=== PATIENT | female | born 1950 | race Caucasian/White ===

== ENCOUNTER 2018-12-14 17:08 | Emergency (ER) | payer MEDICARE, OTHER ==
[~2018-12-14] VITALS: Ht 170.2 cm; Wt 100.2 kg
--- OUTSIDE RECORDS SUMMARY | ~2018-12-14 | XMS | Clinical Summary ---
Demographics + + + | Address | [address] [place] [address] | | | [place] [address] | + + + | Home Phone | | + + + | Preferred Language | Unknown | + + + | Marital Status | Unknown | + + + | Alevism Affiliation | Unknown | + + + | Race | Unknown | + + + | Ethnic Group | Unknown | + + + Author + + + | Author | [facility] | | | and [place] | + + + | Organization | [facility] | | | and [place] | + + + | Address | Unknown | + + + | Phone | Unavailable | + + + Care Team Providers + +------+ + | Care Food Assembler Name | Role | Phone | + +------+ + PCP | Unavailable | + +------+ + Allergies Not on File Medications + + + +---------+------+------+-------+ | Medication | Sig | Dispensed | Refills | Star | End | Statu | | | | | | t | Date | s | | | | | | Date | | | + + + +---------+------+------+-------+ | lovastatin | Take 1 tablet by | 90 | 1 | 09/29 | | Activ | | (MEVACOR) 20 mg | mouth nightly. | tablet | | 10/17 | | e | | tablet | | | | 18 | | | + + + +---------+------+------+-------+ Active Problems Not on file Immunizations + + + + | Name | Dates Previously Given | Next Due | + + + + | INFLUENZA 65 Y OR >, | 02/09/2018 | | | TRIVALENT HIGH-DOSE | | | + + + + Social History + +-------+ +--------+------+ | Tobacco Use | Types | Packs/Day | Years | Date | | | | | Used | | + +-------+ +--------+------+ | Never Assessed | | | | | + +-------+ +--------+------+ + + + | Sex Assigned at | Date Recorded | | | | + + + | Not on file | | + + + + + + + | Job Start Date | Occupation | Industry | + + + + | Not on file | Not on file | Not on file | + + + + + + + + | Travel History | Travel Start | Travel End | + + + + + + | No recent travel history available. | + + Last Filed Vital Signs Not on file Plan of Treatment + + + + + | Health Maintenance | Due Date | Last Done | Comments | + + + + + | Hepatitis C | | | | | Screening | 1 | | | + + + + + | Vaccine: | | | | | Dtap/Tdap/Td (1 - | 0 | | | | Tdap) | | | | + + + + + | Colorectal Cancer | | | | | Screening | 1 | | | | (Colonoscopy) | | | | + + + + + | Vaccine: Zoster (1 | | | | | of 2) | 1 | | | + + + + + | Breast Cancer | | | | | Screening | 6 | | | + + + + + | Vaccine: | | | | | Pneumococcal 65+ | 6 | | | | Low/Medium Risk (1 | | | | | of 2 - PCV13) | | | | + + + + + | Adult Annual | | | | | Wellness Visit | 8 | | | + + + + + | Vaccine: Influenza | | 02/09/2018 | | | (#1) | 9 | | | + + + + + Results Not on filefrom Last 3 Months"
--- OUTSIDE RECORDS SUMMARY | ~2018-12-14 | XMS | Clinical Summary ---
Demographics + + + | Address | [address] [place] [address] | | | [place] [address] | + + + | Home Phone | | + + + | Preferred Language | Unknown | + + + | Marital Status | Unknown | + + + | Bahai Affiliation | Unknown | + + + | Race | Unknown | + + + | Ethnic Group | Unknown | + + + Author + + + | Author | [facility] | | | and [place] | + + + | Organization | [facility] | | | and [place] | + + + | Address | Unknown | + + + | Phone | Unavailable | + + + Care Team Providers + +------+ + | Care Spool Sorter Name | Role | Phone | + [...]
[2018-12-14] MEDS ORDERED: LOSARTAN POTASS50 MG PO (17:44)
[2018-12-14] MEDS ORDERED: ROPINIROLE HCL1 MG PO (17:45)
[2018-12-14] MEDS ORDERED: MELOXICAM15 MG PO (17:45)
[2018-12-14] MEDS ORDERED: CITALOPRAM HBR10 MG PO (17:45)
[2018-12-14] MEDS ORDERED: LOVASTATIN20 MG PO (17:45)
[2018-12-14] MEDS ORDERED: BUPROPION HCL150 M2 PO (17:45)
[2018-12-14] MEDS ORDERED: GLUCOSAMINE CH1 EAC5 PO (17:46)
[2018-12-14] MEDS ORDERED: DICYCLOMINE HCL20 MG PO (20:24)
== END 2018-12-14 20:38 | disposition home or self-care (01) ==
LOC: ED 17:08
DX: R10.11 Right upper quadrant pain (principal); I10 Essential (primary) hypertension; Z88.1 Allergy status to other antibiotic agents; Z88.2 Allergy status to sulfonamides
CPT/HCPCS: 74177; 80053; 81001; 83690; 83735; 85025; 96361; 96374; 96375; 99284-25; J1170; J1885; J2405; J7030

== ENCOUNTER 2021-10-24 18:45 | Emergency (ER) | payer MEDICARE, OTHER ==
[~2021-10-24] VITALS: Ht 170.2 cm; Wt 94.8 kg
[~2021-10-24 18:45] MED LIST: BUPROPION HCL150 M2 PO; CITALOPRAM HBR10 MG PO; DICYCLOMINE HCL20 MG PO; GLUCOSAMINE CH1 EAC5 PO; LOSARTAN POTASS50 MG PO; LOVASTATIN20 MG PO; MELOXICAM15 MG PO; ROPINIROLE HCL1 MG PO
--- OUTSIDE RECORDS SUMMARY | 2021-10-24 18:48 | XMS ---
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 EPrashanth VISIT COUNT (12 MO.) 1 [facility] TOTAL 1 NOTE: Visits indicate total known visits. ED/UCC VISIT TRACKING (12 MO.) 10/24/2021 18:46 [facility] [place] TYPE: Emergency COMPLAINT: - HIP PAIN INPATIENT VISIT TRACKING (12 MO.) No inpatient visits to display in this time frame [email or web address]
[2021-10-24] MEDS ORDERED: ULTRAM50 MG PO (20:42)
[2021-10-24] MEDS ORDERED: NEURONTIN100 MG PO (20:42)
== END 2021-10-24 21:50 | disposition home or self-care (01) ==
LOC: ED 18:45
DX: M54.41 Lumbago with sciatica, right side (principal)
CPT/HCPCS: 36415; 72100; 73502; 80053; 85025; 85610; 96374; 96376; 99283-25; A9270; J2270

== ENCOUNTER 2022-12-26 11:39 | Emergency (ER) | payer MEDICARE, OTHER ==
[~2022-12-26] VITALS: Ht 170.2 cm; Wt 94.8 kg
[~2022-12-26 11:39] MED LIST changes: +NEURONTIN100 MG PO; +ULTRAM50 MG PO
--- OUTSIDE RECORDS SUMMARY | 2022-12-26 11:42 | XMS ---
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 E.Alexander VISIT COUNT (12 MO.) 1 [facility] TOTAL 2 NOTE: Visits indicate total known visits. ED/UCC VISIT TRACKING (12 MO.) 12/26/2022 11:[address] [facility] [place] TYPE: Emergency COMPLAINT: - R ANKLE SWOLLEN [facility] Emergency DIAGNOSES: - Sciatica, left side - all over pain after injection - Leg Pain INPATIENT VISIT TRACKING (12 MO.) No inpatient visits to display in this time frame [email or web address]
[2022-12-26] MEDS ORDERED: K-TAB ER20 MEQ PO (12:01)
[2022-12-26] MEDS ORDERED: HYDROCODON-ACE1 EA10 PO (12:02)
[2022-12-26 12:31] LABS: BASOPHILS 1.1 % (0-2); EOSINOPHILS 0.9 % (0-6); HEMATOCRIT 38.9 % (35.0-50.0); LYMPHOCYTES 21.8 % (24-44); MCH 31.4 (27-36); MCHC 33.5 g/dl (30-36); MCV 93.7 fl (81-99); MONOCYTES 12.1 % (0-12); NEUTROPHILS 64.1 % (39-80); PLATELET COUNT 228 K/uL (140-440); RBC 4.16 M/ul (4.3-5.7); RDW 13.1 (10.5-15.0)
[2022-12-26 12:45] LABS: ALBUMIN 3.9 g/dL (3.4-5.0); ALBUMIN/GLOBULIN RATIO 1.22 (1.1-2.4); ANION GAP 8.4 (7-21); BILIRUBIN, TOTAL 0.6 ng/dL (0.2-1.0); BUN/CREATININE RATIO 18.09 (6.0-28.6); CALCIUM 9.3 mg/dL (8.5-10.1); CREATININE, SERUM 1.05 mg/dL (0.55-1.02); POTASSIUM 4.4 mmol/L (3.5-5.1); PROTEIN, TOTAL 7.1 g/dL (6.4-8.2)
[2022-12-26] MEDS ORDERED: CLEOCIN HCL300 MG PO (13:36)
[2022-12-26 13:43] VITALS: BP 138/84
== END 2022-12-26 13:43 | disposition home or self-care (01) ==
LOC: ED 11:39
PROVIDERS: Internal Medicine
DX: L03.115 Cellulitis of right lower limb (principal); I10 Essential (primary) hypertension; Z98.1 Arthrodesis status; Z88.1 Allergy status to other antibiotic agents; Z88.2 Allergy status to sulfonamides; Z79.899 Other long term (current) drug therapy
CPT/HCPCS: 36415; 73610; 80053; 83605; 85025

== ENCOUNTER 2024-04-03 17:29 | Emergency (ER) | payer MEDICARE, OTHER ==
[~2024-04-03] VITALS: Ht 170.2 cm; Wt 100.2 kg
[~2024-04-03 17:29] MED LIST changes: +CLEOCIN HCL300 MG PO; +GABAPENTIN100 MG PO; +HYDROCODON-ACE1 EA10 PO; +K-TAB ER20 MEQ PO
[2024-04-03 18:45] LABS: HEMOGLOBIN 13.7 g/dL (12.0-18.0)
[2024-04-03] MEDS ORDERED: MECLIZINE HCL 25 MG TAB PO ONE (18:45)
[2024-04-03 18:47] LABS: BASOPHILS 1.2 % (0-2); EOSINOPHILS 0.9 % (0-6); HEMATOCRIT 40.4 % (35.0-50.0); LYMPHOCYTES 31.3 % (24-44); MCV 94.2 fl (81-99); MONOCYTES 12.1 % (0-12); NEUTROPHILS 54.5 % (39-80); PLATELET COUNT 242 K/uL (140-440); RBC 4.29 M/ul (4.3-5.7); RDW 13.7 (10.5-15.0)
[2024-04-03 18:55] LABS: ALBUMIN 3.6 g/dL (3.4-5.0); ALBUMIN/GLOBULIN RATIO 1.09 (1.1-2.4); BILIRUBIN, TOTAL 0.5 ng/dL (0.2-1.0); BUN/CREATININE RATIO 19.04 (6.0-28.6); CALCIUM 9.9 mg/dL (8.5-10.1); CREATININE, SERUM 1.05 mg/dL (0.55-1.02); PROTEIN, TOTAL 6.9 g/dL (6.4-8.2)
[2024-04-03] MEDS ORDERED: ANTIVERT25 M1 PO (19:49)
[2024-04-03 20:15] VITALS: BP 142/99
--- NOTE | 2024-04-04 15:38 | EKG ---
[facility] [address] [facility] [place] [address] Signed Normal sinus rhythm Left anterior fascicular block Minimal voltage criteria for LVH, may be normal variant ( [place] product ) Abnormal ECG When compared with ECG of 15-AUG-2023 02:01, No significant change was found Confirmed by Familia Elena MD ([id number]) on 04/04/2024 1:20:33 PM Electronically Signed By: FAMILIA ELENA MD 04/04/24 1538 PATIENT NAME: NARAYAN HARDING Electrocardiogram DATE OF : 50 PHYSICIAN: FAMILIA ELENA MD REPORT #: [id number] REPORT IS CONFIDENTIAL AND NOT TO BE RELEASED WITHOUT AUTHORIZATION
== END 2024-04-03 20:15 | disposition home or self-care (01) ==
LOC: ED 17:29
PROVIDERS: Emergency Medicine
DX: R42 Dizziness and giddiness (principal); I10 Essential (primary) hypertension; Z88.2 Allergy status to sulfonamides; Z88.1 Allergy status to other antibiotic agents; Z79.899 Other long term (current) drug therapy
CPT/HCPCS: 36415; 70450; 80053; 83735; 84484; 85025; 93005; 93010; 99284-25; A9270

== ENCOUNTER 2025-01-07 11:44 | Emergency (ER) | payer MEDICARE, OTHER ==
[~2025-01-07] VITALS: Ht 170.2 cm; Wt 97.7 kg
[~2025-01-07 11:44] MED LIST changes: +ANTIVERT25 M1 PO
[2025-01-07 13:00] LABS: BASOPHILS 1.3 % (0.1-1.2); EOSINOPHILS 3.6 % (0.7-5.8); LYMPHOCYTES 25.8 % (19.3-51.7); MCH 29.6 PG (25.6-32.2); MCHC 31.9 g/dL (32.2-35.5); MCV 92.5 fL (79.4-94.8); MONOCYTES 11.6 % (4.7-12.5); NEUTROPHILS 57.6 % (34.0-71.1); RBC 4.16 M/uL (3.93-5.22)
[2025-01-07 13:16] LABS: ALT (SGPT) 21.0 U/L (14-59); AST (SGOT) 11.0 U/L (15-37); GLOMERULAR FILTRATION RATE,EST 56.0 mL/min (>60); PROTEIN, TOTAL 7.0 g/dL (6.4-8.2); UREA NITROGEN 23.0 mg/dL (7-18)
[2025-01-07] MEDS ORDERED: MORPHINE SULFATE 4 MG/ML VIAL IV ONE ×2 (14:00→14:45)
--- NOTE | 2025-01-07 16:24 | NUR ---
ARLETTE 1539: THIS RN IS CONSULTING ON THE LEFT LOWER EXTREMITY WITH LATERAL ANKLE. THE PT HAS HAD CHRONIC WOUNDS ON BLE, THE RIGHT LOWER EXTREMITY HAS HEALED. SHE STATES THAT HER DOG SCRATCHED THE AREA, SINCE THAT TIME IT HAS BECOME INFECTED. THE PT HAD A TELFA PAD AND GAUZE WRAPPED ONLY AROUND AREA, THERE IS SWELLING ABOVE AND BELOW THE WOUND AREA. THE PERIWOUND SKIN IS BRIGHT RED, NOT NECESSARILY WARM TO THE TOUCH. THE AREA IS EXTREMELY PAINFUL, SHE DOESN'T TOLERATE MUCH PRESSURE TO THE WOUND WHILE CLEANING. THE WUOND IS CHARACTERISTIC TO A MIXED VENOUX/ARTERIAL VASCULAR WOUND. SHE STATES THAT JATINDER PEÑA HELPED HER ORDER COMPRESSION SOCKS FROM [facility] THAT SHOULD BE HERE TUESDAY - "THE VELCRO KIND" TO MAKE IT EASIER FOR HER TO PUT ON. THE WOUND HAS DRY YELLOW EXUDATE ON THE WOUND BED, THE PT DOES NOT TOLERATE THIS RN ATTEMPTING TO CLEAN SOME OF IT OFF. THE WOUND MEASURED 5.5CM X 4CM X 0.4CM. MEDIHONEY SHEET IS APPLIED TO THE WOUND BED, COVERED WITH A 4X4 QWIK FIBER, SECURED IN PLACE WITH ROLL GAUZE AND COBAN - STARTING AT THE BASE OF THE PINKY TOE, WRAPPING UP TO 2 FINGER WIDTHS BELOW THE KNEE BEND. DUE TO HH NOT BEING SET UP FOR HER YET THROUGH HER PCP. SHE WILL BE SET UP TO COME IN ON AN OUTPATIENT BASIS FOR HELP WITH DRESSING CHANGES THIS IS A HARDSHIP FOR HER. SHE IS EDUCATED ON THE IMPORTANCE OF ELEVATING HER LEGS. SHE IS EDUCATED THAT SHE CAN APPLY ICE PACKS TO THE AREA TO HELP WITH PAIN. SHE IS ALSO EDUCATED THAT ONCE SHE GETS HER COMPRESSION SOCKS SHE WILL WANT TO PUT THEM ON FIRST THING IN THE MORNING AND TAKE THEM OFF BEFORE BED. SHE VERBALIZES UNDERSTANDING. ARLETTE 1619: CONSULT IS COMPLETE. PT IS SETUP TO COME INTO DAY SURGERY FOR WOUND CARE ON 01/09/25 @ 1000.
[2025-01-07] MEDS ORDERED: CLEOCIN HCL150 MG PO (16:58)
[2025-01-07 17:15] VITALS: BP 115/58
== END 2025-01-07 17:15 | disposition home or self-care (01) ==
LOC: ED 11:44
PROVIDERS: Emergency Medicine
DX: L03.116 Cellulitis of left lower limb (principal); L97.929 Non-pressure chronic ulcer of unspecified part of left lower leg with unspecified severity; E78.5 Hyperlipidemia, unspecified; I10 Essential (primary) hypertension; Z79.899 Other long term (current) drug therapy; Z88.1 Allergy status to other antibiotic agents; Z91.040 Latex allergy status; Z88.2 Allergy status to sulfonamides
CPT/HCPCS: 36415; 73701; 80053; 85025; 87070; 87205; 96365; 96366; 96375; 96376; 99283-25; J0696; J2270; J2405; Q9967